=== PATIENT | female | born 1960 | race Caucasian/White ===

== ENCOUNTER → 2021-01-24 | Day surgery (SDC) | payer BC ==
--- NOTE | 2021-01-23 11:48 | PCM.SN.2 ---
- Free Text/Narrative Note: Anesthesia Note: Left selective femoral nerve block at the adductor canal for post-procedure pain control under US guidance requested by Dr. Hirsch. Time Out: 944 Start: 944 End: 948 Chart reviewed. Consent signed. Questions answered. Appropriate monitors applied. Time out performed. Left mid-shaft femur identified with ultrasound, scanning medially of femur, the femoral artery in the adductor canal visualized, and the femoral nerve located laterally to the artery. The skin was prepped lateral to the ultrasound probe with chlorahexadine times two. The 21ga 4 insulated block needle was inserted under direct ultrasound guidance into the adductor canal. 20mL of 0.5% ropivacaine with 1:200,000 epinephrine was injected circumferentially around the nerve with intermittent negative aspiration noted. Patient tolerated the procedure well. Sterile technique noted along with sterile gloves, mask, and sterile probe cover. See picture on progress note and vital signs on nurses notes. Block completed in PACU. Thank you, Olive Lopes CRNA Time Documentation
--- NOTE | 2021-01-23 14:37 | PCM.PREANE ---
Preanesthetic Assessment - Procedure Proposed Procedure: Total left knee arthroplasty with right knee steroid injection. - Anesthesia/Transfusion/Family Hx Anesthesia History: Prior Anesthesia Without Reaction Family History of Anesthesia Reaction: No Transfusion History: Prior Transfusion Without Reaction Intubation History: Unknown - Review of Systems General: Fatigue Pulmonary: No Symptoms (Smoker: 1/2ppd times 40 years), Cough Cardiovascular: No Symptoms (Lung nodule on CT less than 6cm., HTN,), Palpitations (occasionally), Dyspnea on Exertion Gastrointestinal: No Symptoms (GERD) Neurological: No Symptoms (multiple sclerosis 1994 dagnosed with optic neuritis noted and that time.(no symptoms currently.)/Vertigo in the past.) Other: Reports: None (history of anemia/blood transfusion warranted), Thyroid Problems (hypothyroid), Sinus Problem (chronic sinusitis), Depression, Anxiety - Physical Assessment NPO Status Date: 01/23/21 NPO Status Time: 21:30 Vital Signs: HR: 63 B/P: 138/87 Sat: 97% Resp: 12 Temp: 98 Height: 1.63 m Weight: 63 kg ASA Class: 2 Mental Status: Alert & Oriented x3 Airway Class: Mallampati = 2 Dentition: Reports: Dentures (upper and lower) Thyro-Mental Finger Breadths: 3 Mouth Opening Finger Breadths: 3 ROM/Head Extension: Full Lungs: Clear to Auscultation, Normal Respiratory Effort Cardiovascular: Regular Rate, Regular Rhythm, No Murmurs - Lab Values: All labs reviewed and noted and within acceptable ranges to proceed with scheduled procedure. - Imaging/EKG Impressions: EKG: NSR rate=70 CXR: COPD with chronic basilar linear scar. - Allergies Allergies/Adverse Reactions: Allergies Allergy/AdvReac Type Severity Reaction Status Date / Time bupropion [From Wellbutrin] Allergy Cannot Verified 01/23/21 15:13 Remember diet products Allergy Cannot Uncoded 01/23/21 15:13 Remember - Anesthesia Plan Pre-Op Medication Ordered: None, Other (P.O. preoperative meds(lyrica, tylenol, oxycontin) @ 5071) - Acknowledgements Anesthesia Type Planned: Spinal (Left adductor canal block under US guidance for post operative pain control requested by Dr. Hirsch.) Pt an Appropriate Candidate for the Planned Anesthesia: Yes Alternatives and Risks of Anesthesia Discussed w Pt/Guardian: Yes Pt/Guardian Understands and Agrees with Anesthesia Plan: Yes PreAnesthesia Questionnaire - HOME MEDS Home Medications: Home Meds Alendronate Sodium [Fosamax] 70 mg PO Q7D 01/23/21 [History] Aloe Vera 1 cap PO DAILY 01/23/21 [History] Ascorbic Acid/Collagen Hydr [Collagen Plus Vit C] 1 cap PO DAILY 01/23/21 [History] Calcium Carbonate [Coral Calcium] 1 tab PO DAILY 01/23/21 [History] Cetirizine HCl [Zyrtec] 10 mg PO DAILY 01/23/21 [History] Cholecalciferol (Vitamin D3) [Vitamin D3] 5,000 unit PO DAILY 01/23/21 [History] Famotidine [Pepcid] 20 mg PO DAILY 01/23/21 [History] Glucosam/Chond-MSM 2/C/D3/Emigdio [Ioowixpysz-Fqczgyxygkc-ASS] 1 tab PO DAILY 01/23/21 [History] Levothyroxine [Synthroid] 50 mcg PO DAILY 01/23/21 [History] Magnesium Oxide/Magnesium [Magnesium] 300 mg PO DAILY 01/23/21 [History] Montelukast [Singulair] 10 mg PO DAILY 01/23/21 [History] Multivitamin 1 tab PO DAILY 01/23/21 [History] Pantoprazole Sodium [Protonix] 40 mg PO DAILY 01/23/21 [History] Vitamin B Complex 1 cap PO DAILY 01/23/21 [History] Zolpidem Tartrate [Ambien] 5 mg PO BEDTIME 01/23/21 [History] Apixaban [Eliquis] 2.5 mg PO BID #60 tablet 01/24/21 [Rx] Cyclobenzaprine [Flexeril] 5 mg PO BID PRN #20 tab 01/24/21 [Rx] oxyCODONE 5 - 10 mg PO Q4H PRN #40 tab 01/24/21 [Rx] - CURRENT (IN HOUSE) MEDS Current Meds: Current Medications Lactated Ringer's (Ringers, Lactated) 1,000 mls @ 125 mls/hr IV ASDIRECTED DELMAR Stop: 01/24/21 23:00 Lidocaine/Sodium Bicarbonate (Lidocaine 1%/Sod Bicarbonate In Ns 8.4% 1 Ml Syringe) 0.25 ml IDERM ONETIME PRN PRN Reason: Prior to IV Start Stop: 01/24/21 18:00 Sodium Chloride (Sodium Chloride 0.9% 10 Ml Syringe) 10 ml FLUSH ASDIRECTED PRN PRN Reason: Keep Vein Open Stop: 01/24/21 18:00
[~2021-01-24] MED LIST: Acetaminophen 325 MG Tab PO SCH; Albuterol 0.083% 2.5 MG/3 ML Neb Soln NEB PRN; Bupivacaine 0.25% 10 ML SDV ONE; EPINEPHrine 1 MG/ML SDV ONE; HYDROmorphone 0.5 MG/0.5 ML Syringe IVPUSH PRN; Ketamine 500 mg/10 ML MDV ONE; Ketorolac 30 MG/ML SDV ONE; Lactated Ringers 1,000 ML ONE; Lidocaine 1%/Sod Bicarbonate in NS 8.4% 1 ML Syringe IDERM PRN; Metoclopramide 10 MG/2 ML SDV IVPUSH ONE; Midazolam 1 MG/ML 2 ML SDV ONE; Morphine 8 MG, EPINEPHrine 0.3 MG, Cefuroxime 750 MG, Ketorolac 30 MG, Sodium Chloride ... PRN; Ondansetron 4 MG/2 ML SDV IVPUSH PRN; Ondansetron 4 MG/2 ML SDV ONE; Pregabalin 25 MG Cap PO SCH; Propofol 200 MG/20 ML SDV ONE; Ropivacaine 0.5% 5 MG/ML 30 ML SDV ONE; Sodium Chloride 0.9% 10 ML Syringe FLUSH PRN; Triamcinolone Acetonide 40 MG/ML 1 ML SDV ONE; Vancomycin 1 GM SDV ONE; ceFAZolin 1 GM Vial ONE; diphenhydrAMINE 50 MG/ML SDV IVPUSH PRN; ePHEDrine 50 MG/ML SDV IVPUSH PRN; ePHEDrine 50 MG/ML SDV ONE; fentaNYL 100 MCG/2 ML SDV IVPUSH PRN; fentaNYL 100 MCG/2 ML SDV ONE; oxyCODONE ER 10 MG TAB.ER PO SCH
[2021-01-24] MEDS: Lactated Ringers 1,000 ML IV SCH ×2 (07:35→10:23)
--- NOTE | 2021-01-24 09:58 | PCM.POSTAN ---
POST ANESTHESIA ASSESSMENT - MENTAL STATUS Mental Status: Alert - VITAL SIGNS Vital Signs: Last Vital Signs Temp 36.3 C 01/24/21 09:39 Pulse 75 01/24/21 09:45 Resp 19 01/24/21 09:39 BP 113/48 L 01/24/21 09:45 Pulse Ox 94 L 01/24/21 09:39 - RESPIRATORY Respiratory Status: Respiratory Rate WNL, Airway Patent, O2 Saturation Stable, Supplemental Oxygen - CARDIOVASCULAR CV Status: Pulse Rate WNL, Low Blood Pressure (treated and responded to ephedrine) - GASTROINTESTINAL GI Status: No Symptoms - POST OP HYDRATION Hydration Status: Adequate & Stable
--- NOTE | 2021-01-24 09:59 | PCM48HPAN ---
Post Anesthesia Note - EVALUATION WITHIN 48HRS OF ANESTHETIC Vital Signs in Normal Range: Yes Patient Participated in Evaluation: Yes Respiratory Function Stable: Yes Airway Patent: Yes Cardiovascular Function Stable: Yes Hydration Status Stable: Yes Pain Control Satisfactory: Yes Nausea and Vomiting Control Satisfactory: Yes Mental Status Recovered: Yes Vital Signs: Last Vital Signs Temp 36.3 C 01/24/21 09:39 Pulse 75 01/24/21 09:45 Resp 19 01/24/21 09:39 BP 113/48 L 01/24/21 09:45 Pulse Ox 94 L 01/24/21 09:39
--- NOTE | 2021-01-24 10:46 | CR ---
Left knee: AP and crosstable lateral views of the left knee were obtained. Comparison: Prior CT left knee study of 01/16/21. Knee prosthesis is seen. Components are aligned. Patellar prosthesis is also seen. Soft tissue air is noted from the surgical procedure. No additional bony abnormality is seen. Impression: 1. Satisfactory postop radiographic appearance of recently placed left knee prostheses. Diagnostic code #2
--- NOTE | 2021-02-06 06:44 | PCM.OPNOTE ---
- General Post-Op/Procedure Note Date of Surgery/Procedure: 01/24/21 Operative Procedure(s): left total knee arthroplasty with right knee corticosteroid injection Pre Op Diagnosis: bilateral knee osteoarthrosis Post-Op Diagnosis: Same Anesthesia Technique: Local, MAC, Spinal Primary Surgeon: Jason Hirsch Anesthesia Provider: Olive Lopes Operations General Agent: Kath Simeon Operations General Agent: Ananya Barajas in mLs: 5 Complications: None Condition: Good Free Text/Narrative:: 3 femur 2 9mm 29x9
--- NOTE | 2021-02-06 07:18 | OR ---
DATE OF OPERATION: 01/24/2021 SURGEON: Jason Hirsch MD OPERATION PERFORMED: Left total knee arthroplasty with right knee corticosteroid injection. PREOPERATIVE DIAGNOSIS: Bilateral knee osteoarthrosis. POSTOPERATIVE DIAGNOSIS: Bilateral knee osteoarthrosis. ANESTHESIA: Local MAC with spinal. ANESTHESIA PROVIDER: Olive Lopes CRNA MANAGER PROVIDER RELATIONS: Kath Simeon PA-C, and Ananya Barajas RN ESTIMATED BLOOD LOSS: 5 mL. COMPLICATIONS: None. CONDITION: Stable. IMPLANT: 1. Gonzales size 3 cemented PS femur. 2. Gonzales size 2 cemented universal tibial baseplate. 3. Jaylin size 2, 9 mm PS X3 polyethylene. 4. Gonzales size 29 x 9 mm cemented asymmetric patella. DESCRIPTION OF PROCEDURE: The patient was identified in the preop holding area. Proper site was marked and identified by the surgeon. The patient was taken back to the operating theater where after adequate anesthesia, the patient's left lower extremity had a nonsterile tourniquet applied and it was sterilely prepped and draped in the usual sterile fashion. OR time-out was performed. The patient received 2 g IV Ancef . Leg montanez was then applied to the left lower extremity. At this time, the left lower extremity was exsanguinated. Tourniquet was insufflated to 250 mmHg . Standard anterior incision was made. Medial parapatellar arthrotomy was created. Deep fibers of the MCL were raised as well as anterior fat pad was resected. Attention was turned to the patella. Patella measured 21 mm; it was resected to a 30 mm for a 29 x 9 mm patella. Drill holes were then drilled. Attention was then turned to the femur. Two 4.0 pins were placed intra- incisionally for the Jaylin Renzo robotic array and then 2 more were placed on the tibia 3 fingerbreadths below the tibial tubercle. The Gonzales Renzo robotic arrays were placed on both the femur and the tibia then at this time as well as checkpoints on the femur and tibia. Hip center rotation was then obtained. The medial and lateral malleoli were marked. At this time, 40 points were obtained off the femur and the tibia for the Gonzales Renzo robotic plan. The patient's knee was brought to full extension. Varus and valgus stresses were applied and then into 90 degrees of flexion with a curved osteotome. Varus and valgus stresses were applied. At this time, [employer] robotic plan was done to 19 mm gaps in both flexion and extension. Gonzales Mako robotic arm was then brought in. A straight saw blade was then used for the tibial cut, the anterior femoral cut, the anterior chamfer cut, and the posterior femoral cut. All bony fragments were removed. Saw blade was then switched out and the distal femoral cut as well as the posterior chamfer cut was completed. At this time, medial and lateral menisci were resected as well as any posterior osteophytes. A size 2 mm trial tibia was then placed, size 3 mm trial femur was placed, and a size 2, 9 mm PS X3 polyethylene trial liner was placed. The patient's knee was brought to full extension and flexion. Varus and valgus stresses were applied, was found to be stable with no instability. No signs of liftoff or loosening were noted. At this time, box cut was completed on the femur. The pins were removed from the femur and the tibia as well as the arrays and the checkpoints. Cement was mixed on the back table. All cut surfaces were irrigated with pulse lavage irrigation with Ancef and then completely dried. Once the cement was ready, the Jaylin size 2 mm cemented Eldridge tibial base plate having been previously stamped and drilled, was then cemented in place on the tibia. The Jaylin size 3 mm cemented femur was cemented into place. The patient had a Gonzales size 2, 9 mm PS X3 polyethylene insert placed. The patient's knee was brought to full extension. Excess cement was removed. A Jaylin size 29 x 9 mm cemented asymmetric patella was then cemented into place. 1 L of pulse lavage irrigation with Ancef was irrigated through the knee along with 400 mL of Irrisept irrigation. Periarticular injection was completed. Topical tranexamic acid and vancomycin powder were applied. A #2 barbed suture was used for closure of the medial parapatellar arthrotomy in flexion. 2-0 Vicryl and Stratafix were used for subcutaneous closure. Prineo was used for cutaneous closure. The patient had a sterile soft dressing applied. The tibial holes were closed with nylon, and this was also covered with a sterile soft dressing. The patient had an NATALIE wrap applied and was sent to PACU in stable condition. The patient tolerated the procedure well. After this was completed, under sterile technique, 2 mL of 40 mg Kenalog, 4 mL of 0.25% Marcaine were injected to the right knee. Patient tolerated all procedures well. GEOFF /[id number]
== END | disposition home or self-care (01) ==
LOC: JD.SDS 07:02
PROVIDERS: ATTEND Orthopaedic Surgery
DX: M17.0 Bilateral primary osteoarthritis of knee (principal); I10 Essential (primary) hypertension; F17.210 Nicotine dependence, cigarettes, uncomplicated; G89.29 Other chronic pain; D50.9 Iron deficiency anemia, unspecified; E03.8 Other specified hypothyroidism; Z20.822 Contact with and (suspected) exposure to COVID-19; Z88.8 Allergy status to other drugs, medicaments and biological substances; Z79.899 Other long term (current) drug therapy; Z98.890 Other specified postprocedural states; Z82.49 Family history of ischemic heart disease and other diseases of the circulatory system
CPT/HCPCS: 20610; 27447; 73560; 97116; 97161; A9270; C1713; C1776; J0171; J0690; J0697; J1170; J1885; J2250; J2270; J2370; J2405; J2704; J2765; J2795; J3010; J3301; J3370; J3490; J7120; 01402; 64450; 76942

== ENCOUNTER → 2021-04-22 | Day surgery (SDC) | payer BC ==
[~2021-04-22] MED LIST changes: -Bupivacaine 0.25% 10 ML SDV ONE; +Dexamethasone 4 MG/ML 5 ML MDV ONE; +Dexmedetomidine 200 MCG/2 ML SDV ONE; -HYDROmorphone 0.5 MG/0.5 ML Syringe IVPUSH PRN; -Ketamine 500 mg/10 ML MDV ONE; +Lactated Ringers 1,000 ML IV SCH; +Lidocaine 1% 4 ML ONE; -Metoclopramide 10 MG/2 ML SDV IVPUSH ONE; -Ondansetron 4 MG/2 ML SDV IVPUSH PRN; +Scopolamine 1.5 MG Transdermal Patch TRDERM PRN; -Sodium Chloride 0.9% 10 ML Syringe FLUSH PRN; +Sodium Chloride 0.9% 10 ML Syringe FLUSH SCH; -Triamcinolone Acetonide 40 MG/ML 1 ML SDV ONE; -diphenhydrAMINE 50 MG/ML SDV IVPUSH PRN; -ePHEDrine 50 MG/ML SDV IVPUSH PRN; -fentaNYL 100 MCG/2 ML SDV IVPUSH PRN; +oxyCODONE 5 MG Tab PO SCH
--- NOTE | 2021-04-22 09:47 | PCM.PREANE ---
Preanesthetic Assessment - Procedure Proposed Procedure: Right total knee arthroplasty - Anesthesia/Transfusion/Family Hx Anesthesia History: Prior Anesthesia Without Reaction Family History of Anesthesia Reaction: No Transfusion History: Prior Transfusion Without Reaction Intubation History: Unknown - Review of Systems General: No Symptoms Pulmonary: Cough (Chronic smoker cough; had a cold 2 weeks ago, symptoms have significantly improved per patient. Now chronic smoker cough) Cardiovascular: No Symptoms Gastrointestinal: No Symptoms Neurological: Seizure (following taking wellbutrin), Tingling (left knee) Other: Reports: Thyroid Problems - Physical Assessment NPO Status Date: 04/21/21 NPO Status Time: 23:45 Vital Signs: 135/63 HR 79 RR 16 97.4 94% Height: 1.63 m Weight: 60 kg ASA Class: 3 Mental Status: Alert & Oriented x3 Airway Class: Mallampati = 2 Dentition: Reports: Dentures Thyro-Mental Finger Breadths: 3 Mouth Opening Finger Breadths: 3 ROM/Head Extension: Full Lungs: Clear to Auscultation, Normal Respiratory Effort, Wheezing (to bilat bases) Cardiovascular: Regular Rate, Regular Rhythm, No Murmurs - Lab Values: Labs reviewed and okay to proceed - Imaging/EKG Impressions: EKG NSR with occ. PVCs HR 82 - Allergies Allergies/Adverse Reactions: Allergies Allergy/AdvReac Type Severity Reaction Status Date / Time bupropion [From Wellbutrin] Allergy Cannot Verified 04/21/21 13:41 Remember diet products Allergy Syncope Uncoded 04/21/21 13:41 - Acknowledgements Anesthesia Type Planned: General Anesthesia, Spinal, Regional Block Pt an Appropriate Candidate for the Planned Anesthesia: Yes Alternatives and Risks of Anesthesia Discussed w Pt/Guardian: Yes Pt/Guardian Understands and Agrees with Anesthesia Plan: Yes PreAnesthesia Questionnaire HEENT History: Reports: Sinusitis, Other (See Below) Other HEENT History: otitis neuritis Cardiovascular History: Reports: Hypertension Respiratory History: Reports: COPD, Other (See Below) Other Respiratory History: lung nodule Gastrointestinal History: Reports: Gastritis, GERD Genitourinary History: Reports: None [employer]RO[employer] WORKER History: Reports: None Musculoskeletal History: Reports: Osteoarthritis, Osteoporosis Neurological History: Reports: MS (1994-occasional symptoms in which is displayed by being more clumisness) Psychiatric History: Reports: Depression, Other (See Below) Other Psychiatric History: insomnia, fatigue Endocrine/Metabolic History: Reports: Hypothyroidism Hematologic History: Reports: Anemia Immunologic History: Reports: None Oncologic (Cancer) History: Reports: None Dermatologic History: Reports: Other (See Below) Other Dermatologic History: left breast cyst excision - Infectious Disease History Infectious Disease History: Reports: None - Past Surgical History Head Surgeries/Procedures: Reports: None HEENT Surgical History: Reports: None Cardiovascular Surgical History: Reports: None Respiratory Surgical History: Reports: None GI Surgical History: Reports: Colonoscopy Female Surgical History: Reports: Hysterectomy, Salpingo-Oophorectomy, Other (See Below) Other Female Surgeries/Procedures: breast mass removal Male Surgical History: Reports: None Endocrine Surgical History: Reports: None Neurological Surgical History: Reports: None Musculoskeletal Surgical History: Reports: Knee Replacement Oncologic Surgical History: Reports: None Dermatological Surgical History: Reports: None - SUBSTANCE USE Tobacco Use Status *Q: Current Every Day Tobacco User Tobacco Use Within Last Twelve Months: Cigarettes Second Hand Smoke Exposure: Yes Days Per Week of Alcohol Use: 0 Number of Drinks Per Day: 0 Total Drinks Per Week: 0 Recreational Drug Use History: No - HOME MEDS Home Medications: Home Meds Alendronate Sodium [Fosamax] 70 mg PO Q7D 01/23/21 [History] Aloe Vera 1 cap PO DAILY 01/23/21 [History] Ascorbic Acid/Collagen Hydr [Collagen Plus Vit C] 1 cap PO DAILY 01/23/21 [History] Calcium Carbonate [Coral Calcium] 1 tab PO DAILY 01/23/21 [History] Cetirizine HCl [Zyrtec] 10 mg PO DAILY 01/23/21 [History] Cholecalciferol (Vitamin D3) [Vitamin D3] 5,000 unit PO DAILY 01/23/21 [History] Famotidine [Pepcid] 20 mg PO DAILY 01/23/21 [History] Glucosam/Chond-MSM 2/C/D3/Emigdio [Afxwmnbryk-Ldjbwqrigdf-TRD] 1 tab PO DAILY 01/23/21 [History] Levothyroxine [Synthroid] 50 mcg PO DAILY 01/23/21 [History] Magnesium Oxide/Magnesium [Magnesium] 300 mg PO DAILY 01/23/21 [History] Montelukast [Singulair] 10 mg PO DAILY 01/23/21 [History] Multivitamin 1 tab PO DAILY 01/23/21 [History] Pantoprazole Sodium [Protonix] 40 mg PO DAILY 01/23/21 [History] Vitamin B Complex 1 cap PO DAILY 01/23/21 [History] Zolpidem Tartrate [Ambien] 5 mg PO BEDTIME 01/23/21 [History] Apixaban [Eliquis] 2.5 mg PO BID #60 tablet 04/19/21 [Rx] Cyclobenzaprine [Flexeril] 5 mg PO BID PRN #20 tab 04/19/21 [Rx] oxyCODONE 5 - 10 mg PO Q4H PRN #40 tab 04/19/21 [Rx] Celecoxib [CeleBREX] 100 mg PO DAILY PRN 04/21/21 [History] traMADol [Ultram] 50 mg PO TID PRN 04/21/21 [History] - CURRENT (IN HOUSE) MEDS Current Meds: Current Medications Acetaminophen (Acetaminophen 325 Mg Tab) 975 mg PO ONETIME DELMAR Stop: 04/22/21 12:00 Albuterol (Albuterol 0.083% 2.5 Mg/3 Ml Neb Soln) 2.5 mg NEB ONETIME PRN PRN Reason: copd Stop: 04/22/21 18:00 Morphine Sulfate 8 mg/Epinephrine HCl 0.3 mg/Cefuroxime Sodium 750 mg/Ketorolac Tromethamine 30 mg/Sodium Chloride 7.9 ml 0 mg .XX ASDIRECTED PRN PRN Reason: Pain Stop: 04/22/21 18:00 Lactated Ringer's (Ringers, Lactated) 1,000 mls @ 125 mls/hr IV ASDIRECTED DELMAR Stop: 04/22/21 23:00 Lidocaine/Sodium Bicarbonate (Lidocaine 1%/Sod Bicarbonate In Ns 8.4% 1 Ml Syringe) 0.25 ml IDERM ONETIME PRN PRN Reason: Prior to IV Start Stop: 04/22/21 18:00 Oxycodone HCl (Oxycodone Er 10 Mg Tab.Er) 10 mg PO ONETIME DELMAR Stop: 04/22/21 12:00 Pregabalin (Pregabalin 25 Mg Cap) 50 mg PO ONETIME DELMAR Stop: 04/22/21 12:00 Scopolamine (Scopolamine 1.5 Mg Transdermal Patch) 1.5 mg TRDERM ONETIME PRN PRN Reason: PONV Stop: 04/22/21 18:00 Sodium Chloride (Sodium Chloride 0.9% 10 Ml Syringe) 10 ml FLUSH 0900,2100 DELMAR Stop: 04/22/21 18:00
--- NOTE | 2021-04-22 13:21 | PCM.POSTAN ---
POST ANESTHESIA ASSESSMENT - MENTAL STATUS Mental Status: Alert, Oriented - VITAL SIGNS Vital Signs: Last Vital Signs Temp 36.9 C 04/22/21 13:16 Pulse 79 04/22/21 09:35 Resp 20 04/22/21 13:16 BP 84/41 L 04/22/21 13:16 Pulse Ox 95 04/22/21 13:16 - RESPIRATORY Respiratory Status: Respiratory Rate WNL, Airway Patent, O2 Saturation Stable, Supplemental Oxygen - CARDIOVASCULAR CV Status: Pulse Rate WNL, Blood Pressure Stable - GASTROINTESTINAL GI Status: No Symptoms - PAIN Pain Score: 0 - POST OP HYDRATION Hydration Status: Adequate & Stable
--- NOTE | 2021-04-22 13:43 | PCM.PRNOTE ---
- Free Text/Narrative Note: Postoperative regional pain control requested by surgeon. Pre-op Dx: Rt knee osteoarthritis Post-op Rx: Rt total knee arthroplasty. Procedure: Rt Adductor canal block with U/S guidance Requesting physician: Dr. Jason Villegas Risks and benefits discussed with the patient preoperatively including infection, bleeding, incomplete or failed block, possible nerve damage, local anesthetic toxicity. Chart reviewed, VS stable. Permit signed. Patient in PACU , stable , alert and awake after SAB. Time out performed at 13:30. Right mid-thigh was prepped with Chloraprep x 1 and allowed to dry. Under aseptic technique, the Right femoral artery and sartorius muscle were identified under ultrasound prior to needle insertion . 4" Stimuplex needle #22 G was inserted under US guidance. Under direct visualization of needle tip the injection of 0.5% Ropivacaine with 1:200k epinephrine,(mixed with 40 mcg Dexmedetomidine and 6 mg of Dexamethasone), total of 30 mls in divided doses, maintaining negative aspiration was completed around the femoral artery under the sartorius muscle without problems. No local anesthetic toxicity was noted. Patient is awake, stable and tolerated the procedure well. Please see attached U/S images Times: 13:30 - 13:37
--- NOTE | 2021-04-22 14:40 | CR ---
Right knee: AP and crosstable lateral views of the right knee were obtained. Comparison: Previous right knee CT study of 04/05/21. Knee prosthesis is noted. Patella is not well seen to make comment about. No acute fracture is seen. Air is noted around the knee from surgical procedure. Impression: 1. Patella not optimally seen on the lateral view. 2. Other portions of the knee exam appear within normal limits by radiographic technique for postoperative procedural placement. Diagnostic code #2
--- NOTE | 2021-04-22 14:54 | PCM48HPAN ---
Post Anesthesia Note - EVALUATION WITHIN 48HRS OF ANESTHETIC Vital Signs in Normal Range: Yes Patient Participated in Evaluation: Yes Respiratory Function Stable: Yes Airway Patent: Yes Cardiovascular Function Stable: Yes Hydration Status Stable: Yes Pain Control Satisfactory: Yes Nausea and Vomiting Control Satisfactory: Yes Mental Status Recovered: Yes Vital Signs: Last Vital Signs Temp 36.7 C 04/22/21 14:00 Pulse 68 04/22/21 14:00 Resp 14 04/22/21 14:00 BP 104/63 04/22/21 14:00 Pulse Ox 94 L 04/22/21 14:00
--- NOTE | 2021-05-12 21:20 | PCM.OPNOTE ---
- General Post-Op/Procedure Note Date of Surgery/Procedure: 04/22/21 Operative Procedure(s): right total knee arthroplasty with [employer] robot[employer] Pre Op Diagnosis: right knee osteoarthrosis Post-Op Diagnosis: Same Anesthesia Technique: Local, MAC, Spinal Primary Surgeon: Jason Hirsch Anesthesia Provider: Lin Glynn Belt Cleaner: Kath Simeon Belt Cleaner: Tasha Rasmussen EBL in mLs: 5 Complications: None Condition: Good Free Text/Narrative:: 3 2 9mm 29x9
--- NOTE | 2021-05-12 22:13 | OR ---
DATE OF OPERATION: 04/22/2021 SURGEON: Jason Hirsch MD OPERATION PERFORMED: Right total knee arthroplasty with Burns [employer]zo robotics. PREOPERATIVE DIAGNOSIS: Right knee osteoarthrosis. POSTOPERATIVE DIAGNOSIS: Right knee osteoarthrosis. ANESTHESIA: Local MAC with spinal. ANESTHESIA PROVIDER: Lin Glynn CRNA [employer] INSTALLER (S): Kath Simeon PA-C, and Tasha Rasmussen LPN. ESTIMATED BLOOD LOSS: 5 mL. COMPLICATIONS: None. CONDITION: Stable. IMPLANTS: 1. Burns size 3 cemented PS femur. 2. Burns size 2 cemented [place] tibial baseplate. 3. Burns size 2, 9 mm PS X3 polyethylene. 4. Burns size 29 x 9 mm cemented asymmetric patella. DESCRIPTION OF PROCEDURE: The patient was identified in the preop holding area. Proper site was marked and identified by the surgeon. The patient was taken back to the operating theater where after adequate anesthesia, the patient's right lower extremity had a nonsterile tourniquet applied and it was sterilely prepped and draped in the usual sterile fashion. OR time-out was performed. The patient received 2 g IV Ancef. Leg montanez was then applied to the right lower extremity. At this time, the right lower extremity was exsanguinated. Tourniquet was insufflated to 250 mmHg. Standard anterior incision was made. Medial parapatellar arthrotomy was created. Deep fibers of the MCL were raised as well as anterior fat pad was resected. Attention was turned to the patella. Patella measured 21 mm; it was resected to 13 mm for a 29 x 9 mm patella. Drill holes were then drilled. Attention was then turned to the femur. Two 4.0 pins were placed intra-incisionally for the Burns Renzo robotic array and then 2 more were placed on the tibia 3 fingerbreadths below the tibial tubercle. The Jaylin Renzo robotic arrays were placed on both the femur and the tibia then at this time as well as checkpoints on the femur and tibia. Hip center rotation was then obtained. The medial and lateral malleoli were marked. At this time, 40 points were obtained off the femur and the tibia for the Burns Renzo robotic plan. The patient's knee was brought to full extension. Varus and valgus stresses were applied and then into 90 degrees of flexion with a curved osteotome. Varus and valgus stresses were applied. At this time, Boz[place]o robotic plan was done to 19 mm gaps in both flexion and extension. Burns Mako robotic arm was then brought in. A straight saw blade was then used for the tibial cut, the anterior femoral cut, the anterior chamfer cut, and the posterior femoral cut. All bony fragments were removed. Saw blade was then switched out and the distal femoral cut as well as the posterior chamfer cut was completed. At this time, medial and lateral menisci were resected as well as any posterior osteophytes. A size 2 trial tibia was then placed, size 3 trial femur was placed, and a size 2, 9 mm PS X3 polyethylene trial liner was placed. The patient's knee was brought to full extension and flexion. Varus and valgus stresses were applied, was found to be stable with no instability. No signs of liftoff or loosening were noted. At this time, box cut was completed on the femur. The pins were removed from the femur and the tibia as well as the arrays and the checkpoints. Cement was mixed on the back table. All cut surfaces were irrigated with pulse lavage irrigation with Ancef and then completely dried. Once the cement was ready, the Burns size 2 cemented [place] tibial base plate having been previously stamped and drilled, was then cemented in place on the tibia. The Jaylin size 3 cemented PS femur was cemented into place. The patient had a Burns size 2, 9 mm PS X3 polyethylene insert placed. The patient's knee was brought to full extension. Excess cement was removed. A Burns size 29 x 9 mm cemented asymmetric patella was then cemented into place. 1 L of pulse lavage irrigation with Ancef was irrigated through the knee along with 400 mL of Irrisept irrigation. Periarticular injection was completed. Topical tranexamic acid and vancomycin powder were applied. A #2 barbed suture was used for closure of the medial parapatellar arthrotomy in flexion. 2-0 Vicryl and Stratafix were used for subcutaneous closure. Prineo was used for cutaneous closure. The patient had a sterile soft dressing applied. The tibial holes were closed with nylon, and this was also covered with a sterile soft dressing. The patient had an NATALIE wrap applied and was sent to PACU in stable condition. The patient tolerated the procedure well. and then used the at the blanks used implants provided at the beginning of the Burns. MMODAL /[id number]
== END | disposition home or self-care (01) ==
LOC: JD.SDS 09:42
PROVIDERS: ATTEND Orthopaedic Surgery
DX: M17.11 Unilateral primary osteoarthritis, right knee (principal); G47.00 Insomnia, unspecified; F17.210 Nicotine dependence, cigarettes, uncomplicated; E03.8 Other specified hypothyroidism; N30.00 Acute cystitis without hematuria; R05.9 Cough, unspecified; J44.9 Chronic obstructive pulmonary disease, unspecified; K21.9 Gastro-esophageal reflux disease without esophagitis; Z88.8 Allergy status to other drugs, medicaments and biological substances; Z79.899 Other long term (current) drug therapy; Z98.890 Other specified postprocedural states; Z79.890 Hormone replacement therapy
CPT/HCPCS: 27447; 73560; 94640; 97116; 97161; A9270; C1713; C1776; J0171; J0690; J0697; J1100; J1885; J2250; J2270; J2405; J2704; J2795; J3010; J3370; J7120; 01402; 64450; 76942